=== PATIENT | male | born 1945 | race African-American/Black ===

== ENCOUNTER 2021-01-11 19:13 | Inpatient (IN) | payer OTHER ==
[2021-01-11 20:03] VITALS: BMI 25.0
[2021-01-11] MEDS ORDERED: LIDOCAINE 5% TOPICAL PATCH TP ONE (20:31)
[2021-01-11] MEDS ORDERED: LIDOCAINE 5% TOPICAL PATCH ONE (21:40)
[2021-01-11 21:47] LABS: EPI CELLS 3 /uL (0-25.1); HYALINE CASTS 4 /uL (0-3.1); URINE APPEARANCE CLEAR; URINE BACTERIA 43 /uL (0-1359); URINE BILIRUBIN NEGATIVE (NEGATIVE); URINE COLOR YELLOW; URINE GLUCOSE (UA) NEGATIVE (NEGATIVE); URINE KETONE NEGATIVE (NEGATIVE); URINE LEUK ESTERASE NEGATIVE (NEGATIVE); URINE NITRITE NEGATIVE (NEGATIVE); URINE PROTEIN 1+ (NEGATIVE); URINE RBC 2 /uL (0-23.9); URINE UROBILINOGEN 4.0 E.U/dl mg/dL (0.2-1.0); URINE WBC 1 /uL (0-25.8)
[2021-01-11] MEDS ORDERED: LIDOCAINE PATCH REMOVAL MC ONE (22:00)
[2021-01-11 22:14] LABS: INR 1.15 (0.83-1.09); PROTHROMBIN TIME (PATIENT) 12.9 SEC (9.7-13.0)
[2021-01-11 22:15] LABS: BASO % 0.7 % (0-2.0); EOS % 2.4 % (0-4.5); HEMATOCRIT 35.3 % (35.4-49); HEMOGLOBIN 11.9 GM/dL (11.7-16.9); LYMPH % 19.8 % (8-40); MCH 36.7 pg (25.7-33.7); MCHC 33.6 g/dl (32.0-35.9); MEAN CELL VOLUME 109.2 fl (80-96); MEAN PLT VOLUME 8.6 fl (7.5-11.1); MONO % 20.7 % (3.8-10.2); NEUT % 56.4 % (42.8-82.8); RBC 3.24 M/mm3 (4.00-5.60); RDW 20.1 % (11.9-15.9)
[2021-01-11 22:17] LABS: ACTIVATED PTT 25.6 SECONDS (25.2-36.5)
[2021-01-11 22:25] LABS: CHLORIDE 98 mmol/L (98-107)
[2021-01-11 22:27] LABS: CALCIUM 8.3 mg/dL (8.5-10.1)
[2021-01-11 22:28] LABS: ALBUMIN 3.1 g/dl (3.4-5.0); CO2 26 mmol/L (21-32); GLUCOSE,RANDOM 91 mg/dL (74-106)
[2021-01-11 22:31] LABS: CREATININE 1.2 mg/dL (0.55-1.3)
[2021-01-11 22:33] LABS: TOT PROT 9.6 g/dl (6.4-8.2)
[2021-01-11 22:34] LABS: ALK PHOS 182 U/L (45-117)
[2021-01-11 22:36] LABS: ANION GAP -6 MMOL/L (8-16); SGOT/AST 249 U/L (15-37); SODIUM 118 mmol/L (136-145)
[2021-01-11 22:58] LABS: ANISOCYTOSIS 2+; MACROCYTOSIS 2+; PLATELET ESTIMATE DECREASED
[2021-01-11 23:01] LABS: WHITE BLOOD COUNT 5.7 K/mm3 (4.0-10.0)
[2021-01-11 23:02] LABS: PLATELET COUNT 111 10^3/uL (134-434)
[2021-01-12 00:33] LABS: CHLORIDE 102 mmol/L (98-107); SODIUM 138 mmol/L (136-145)
[2021-01-12 00:35] LABS: CALCIUM 9.1 mg/dL (8.5-10.1)
[2021-01-12 00:36] LABS: ALBUMIN 3.4 g/dl (3.4-5.0); ANION GAP 9 MMOL/L (8-16); BLOOD UREA NITROGEN 17.6 mg/dL (7-18); CO2 27 mmol/L (21-32); GLUCOSE,RANDOM 95 mg/dL (74-106)
[2021-01-12 00:39] LABS: CREATININE 1.1 mg/dL (0.55-1.3); SGOT/AST 130 U/L (15-37); SGPT/ALT 53 U/L (13-61)
[2021-01-12 00:42] LABS: ALK PHOS 182 U/L (45-117)
[2021-01-12] MEDS ORDERED: ALBUTEROL SO4 2.5/IPRATROPIUM 0.5 INH SOL 3 ML VIAL.NEB. NEB ONE ×2 (01:18→05:52)
[2021-01-12] MEDS: ALBUTEROL SO4 2.5/IPRATROPIUM 0.5 INH SOL 3 ML VIAL.NEB. NEB SCH ×2 (01:27→15:40)
[2021-01-12] MEDS ORDERED: FOLIC ACID INJECTION - 1 MG, THIAMINE HCL 200 MG, MULTIVIT INJECTION ADULT 10 ML in SOD... IVPB ONE (03:25)
[2021-01-12] MEDS ORDERED: cloNIDine HCL 0.1 MG TABLET PO PRN (03:36)
[2021-01-12] MEDS ORDERED: LORazepam 2 MG/ML SDV VIAL IVPUSH ONE (03:36)
[2021-01-12] MEDS ORDERED: LORazepam 1 MG TABLET PO PRN (03:36)
[2021-01-12] MEDS ORDERED: methaDONE HCL 10 MG TABLET (FOR DETOX USE ONLY) PO ONE ×2 (04:03→05:00)
[2021-01-12] MEDS ORDERED: methaDONE HCL 10 MG TABLET ONE (04:07)
[2021-01-12] MEDS ORDERED: methaDONE HCL 10 MG TABLET PO ONE (04:15)
[2021-01-12 04:26] LABS: COCAINE, UR NEGATIVE (NEGATIVE); OPIATES, URI NEGATIVE (NEGATIVE); PHENCYCLIDINE,URINE NEGATIVE (NEGATIVE); URINE BENZODIAZEPINES NEGATIVE (NEGATIVE)
[2021-01-12 04:33] LABS: METHADONE, UR POSITIVE (NEGATIVE); URINE AMPHETAMINES NEGATIVE (NEGATIVE); URINE BARBITURATES NEGATIVE (NEGATIVE)
[2021-01-12] MEDS ORDERED: methylPREDNISolone NA SUCC 40 MG/1 ML VIAL ONE ×2 (06:21→20:03)
[2021-01-12 06:45] LABS: HEMATOCRIT 32.9 % (35.4-49); HEMOGLOBIN 11.6 GM/dL (11.7-16.9); MCH 37.4 pg (25.7-33.7); MCHC 35.2 g/dl (32.0-35.9); MEAN CELL VOLUME 106.3 fl (80-96); MEAN PLT VOLUME 8.1 fl (7.5-11.1); PLATELET COUNT 105 10^3/uL (134-434); RDW 17.4 % (11.9-15.9); WHITE BLOOD COUNT 4.5 K/mm3 (4.0-10.0)
[2021-01-12] MEDS: hydrALAZINE HCL 10 MG TABLET PO SCH ×3 (06:50→22:59)
[2021-01-12] MEDS: methylPREDNISolone NA SUCC 40 MG/1 ML VIAL IVPB SCH ×3 (06:58→20:11)
[2021-01-12 07:09] LABS: CALCIUM 8.4 mg/dL (8.5-10.1)
[2021-01-12 07:10] LABS: ALBUMIN 3.2 g/dl (3.4-5.0); BLOOD UREA NITROGEN 15.6 mg/dL (7-18); MAGNESIUM 1.2 mg/dL (1.8-2.4)
[2021-01-12 07:13] LABS: CREATININE 1.1 mg/dL (0.55-1.3); PHOSPHOROUS 3.5 mg/dL (2.5-4.9)
[2021-01-12 07:14] LABS: BILIRUBIN,TOTAL 2.1 mg/dL (0.2-1); TOT PROT 7.6 g/dl (6.4-8.2)
[2021-01-12] MEDS ORDERED: MAGNESIUM SULF 50% (8.12 MEQ/2 ML-1 GM VIAL) IVPB ONE (08:00)
[2021-01-12] MEDS ORDERED: LISINOPRIL 10 MG TABLET PO SCH (10:00)
[2021-01-12] MEDS ORDERED: ENOXAPARIN NA (PORCINE) 40 MG/0.4 ML DISP.SYRIN SQ SCH (10:00)
[2021-01-12] MEDS ORDERED: LABETALOL HCL 5 MG/1 ML (100MG/20 ML VIAL) IVPUSH ONE (10:00)
[2021-01-12] MEDS ORDERED: FOLIC ACID 1 MG TABLET (FP) PO SCH (10:00)
[2021-01-12] MEDS ORDERED: THIAMINE HCL 200 MG/2 ML VIAL IVPB ONE (11:00)
[2021-01-12] MEDS: LISINOPRIL 10 MG TABLET PO SCH (15:41)
[2021-01-12] MEDS: DOCUSATE SODIUM 100 MG CAPSULE (FP) PO SCH ×2 (15:41→22:59)
[2021-01-12] MEDS: LORazepam 1 MG TABLET PO SCH ×4 (15:41→23:00)
[2021-01-12] MEDS: POLYETHYLENE GLYCOL (HEALTHYLAX) 3350 17 GM PACKET PO SCH (15:42)
[2021-01-12] MEDS: NICOTINE 21 MG/24 HOURS TOPICAL PATCH TD SCH (15:42)
[2021-01-12] MEDS: CARVEDILOL 6.25 MG TABLET (FP) PO SCH (15:42)
[2021-01-12] MEDS: THIAMINE HCL 100 MG TABLET (FP) PO SCH ×2 (15:43→22:59)
[2021-01-12] MEDS: BUDESONIDE/FORMETEROL FUMARATE 80/4.5 mcg INHALER IH SCH ×2 (15:43→23:20)
[2021-01-12] MEDS ORDERED: LORazepam 1 MG TABLET ONE (17:49)
[2021-01-12] MEDS ORDERED: GABAPENTIN 100 MG CAPSULE ONE (17:50)
[2021-01-12] MEDS: GABAPENTIN 300 MG CAPSULE PO SCH ×2 (17:59→23:00)
[2021-01-12] MEDS ORDERED: LORazepam 0.5 MG TABLET ONE (20:03)
[2021-01-12] MEDS: ATORVASTATIN CA 10 MG TABLET (FP) PO SCH (22:59)
[2021-01-12] MEDS: amLODIPine BESYLATE 10 MG TABLET (FP) PO SCH (22:59)
[2021-01-12] MEDS: MONTELUKAST NA 10 MG TABLET PO SCH (22:59)
[2021-01-12] MEDS: HEPARIN NA (PORCINE) 5,000 UNITS/ML 1ML VIAL SQ SCH (23:01)
[2021-01-13] MEDS: methylPREDNISolone NA SUCC 40 MG/1 ML VIAL IVPB SCH ×2 (01:22→11:19)
[2021-01-13] MEDS ORDERED: methaDONE HCL 10 MG TABLET ONE ×2 (05:24→12:22)
[2021-01-13] MEDS ORDERED: PT OWN MED DRAWER 7, Y5N ONE ×3 (05:25→22:00)
[2021-01-13] MEDS: GABAPENTIN 300 MG CAPSULE PO SCH ×3 (05:36→22:02)
[2021-01-13] MEDS: hydrALAZINE HCL 10 MG TABLET PO SCH ×3 (05:37→22:02)
[2021-01-13] MEDS: LORazepam 1 MG TABLET PO SCH ×4 (05:37→22:02)
[2021-01-13] MEDS: HEPARIN NA (PORCINE) 5,000 UNITS/ML 1ML VIAL SQ SCH ×3 (05:38→22:02)
[2021-01-13] MEDS: LISINOPRIL 10 MG TABLET PO SCH (06:00)
[2021-01-13] MEDS: THIAMINE HCL 100 MG TABLET (FP) PO SCH ×2 (11:18→22:02)
[2021-01-13] MEDS: NICOTINE 21 MG/24 HOURS TOPICAL PATCH TD SCH (11:18)
[2021-01-13] MEDS: DOCUSATE SODIUM 100 MG CAPSULE (FP) PO SCH ×2 (11:19→22:02)
[2021-01-13] MEDS: BUDESONIDE/FORMETEROL FUMARATE 80/4.5 mcg INHALER IH SCH ×2 (11:19→22:34)
[2021-01-13] MEDS: ASPIRIN 81 MG CHEWABLE TABLETS PO SCH (11:19)
[2021-01-13] MEDS: CARVEDILOL 6.25 MG TABLET (FP) PO SCH (11:19)
[2021-01-13] MEDS: FOLIC ACID 1 MG TABLET (FP) PO SCH (11:19)
[2021-01-13] MEDS: POLYETHYLENE GLYCOL (HEALTHYLAX) 3350 17 GM PACKET PO SCH (11:19)
[2021-01-13] MEDS: LATANOPROST 0.005% OPHTH SOLN 2.5ML BOTTLE OU SCH ×2 (12:39→22:34)
[2021-01-13 17:52] LABS: CALCIUM 8.6 mg/dL (8.5-10.1)
[2021-01-13 17:53] LABS: ALBUMIN 3.2 g/dl (3.4-5.0); BLOOD UREA NITROGEN 26.2 mg/dL (7-18); MAGNESIUM 1.6 mg/dL (1.8-2.4)
[2021-01-13 17:56] LABS: CREATININE 1.3 mg/dL (0.55-1.3); PHOSPHOROUS 4.4 mg/dL (2.5-4.9)
[2021-01-13 17:57] LABS: BILIRUBIN,TOTAL 1.2 mg/dL (0.2-1)
[2021-01-13 17:58] LABS: TOT PROT 7.6 g/dl (6.4-8.2)
[2021-01-13] MEDS: MONTELUKAST NA 10 MG TABLET PO SCH (22:02)
[2021-01-13] MEDS: ATORVASTATIN CA 10 MG TABLET (FP) PO SCH (22:02)
[2021-01-13] MEDS: amLODIPine BESYLATE 10 MG TABLET (FP) PO SCH (22:02)
[2021-01-14] MEDS ORDERED: LORazepam 0.5 MG TABLET PO PRN
[2021-01-14] MEDS: LORazepam 0.5 MG TABLET PO SCH ×2 (05:36→10:04)
[2021-01-14] MEDS: HEPARIN NA (PORCINE) 5,000 UNITS/ML 1ML VIAL SQ SCH ×3 (05:37→22:04)
[2021-01-14] MEDS: hydrALAZINE HCL 10 MG TABLET PO SCH ×3 (05:37→22:04)
[2021-01-14] MEDS: GABAPENTIN 300 MG CAPSULE PO SCH ×3 (05:37→22:04)
[2021-01-14] MEDS ORDERED: methaDONE HCL 10 MG TABLET PO ONE (06:00)
[2021-01-14] MEDS: methaDONE HCL 40 MG DISPERSABLE TABLET PO SCH (06:01)
[2021-01-14] MEDS: LISINOPRIL 10 MG TABLET PO SCH (06:01)
[2021-01-14] MEDS ORDERED: methylPREDNISolone NA SUCC 40 MG/1 ML VIAL IVPB SCH (10:00)
[2021-01-14] MEDS ORDERED: methaDONE HCL 10 MG TABLET (FOR DETOX USE ONLY) PO SCH (10:00)
[2021-01-14] MEDS: DOCUSATE SODIUM 100 MG CAPSULE (FP) PO SCH ×2 (10:01→22:04)
[2021-01-14] MEDS: CARVEDILOL 6.25 MG TABLET (FP) PO SCH (10:01)
[2021-01-14] MEDS: THIAMINE HCL 100 MG TABLET (FP) PO SCH ×2 (10:01→22:05)
[2021-01-14] MEDS: NICOTINE 21 MG/24 HOURS TOPICAL PATCH TD SCH (10:01)
[2021-01-14] MEDS: BUDESONIDE/FORMETEROL FUMARATE 80/4.5 mcg INHALER IH SCH ×2 (10:01→22:05)
[2021-01-14] MEDS: POLYETHYLENE GLYCOL (HEALTHYLAX) 3350 17 GM PACKET PO SCH (10:01)
[2021-01-14] MEDS: ASPIRIN 81 MG CHEWABLE TABLETS PO SCH (10:01)
[2021-01-14] MEDS: FOLIC ACID 1 MG TABLET (FP) PO SCH (10:01)
[2021-01-14 10:15] LABS: BASO % 0.4 % (0-2.0); EOS % 0.8 % (0-4.5); HEMATOCRIT 40.1 % (35.4-49); HEMOGLOBIN 13.8 GM/dL (11.7-16.9); LYMPH % 24.1 % (8-40); MCH 36.3 pg (25.7-33.7); MCHC 34.4 g/dl (32.0-35.9); MEAN CELL VOLUME 105.4 fl (80-96); MONO % 16.7 % (3.8-10.2); PLATELET COUNT 158 10^3/uL (134-434); WHITE BLOOD COUNT 6.5 K/mm3 (4.0-10.0)
[2021-01-14] MEDS: methylPREDNISolone NA SUCC 40 MG/1 ML VIAL IVPUSH SCH ×2 (13:55→22:04)
[2021-01-14] MEDS: LATANOPROST 0.005% OPHTH SOLN 2.5ML BOTTLE OU SCH (22:05)
[2021-01-14] MEDS: MONTELUKAST NA 10 MG TABLET PO SCH (22:05)
[2021-01-14] MEDS: ATORVASTATIN CA 10 MG TABLET (FP) PO SCH (22:05)
[2021-01-14] MEDS: amLODIPine BESYLATE 10 MG TABLET (FP) PO SCH (22:05)
[2021-01-15] MEDS ORDERED: LORazepam 0.5 MG TABLET PO ONE (05:00)
[2021-01-15] MEDS: methaDONE HCL 40 MG DISPERSABLE TABLET PO SCH (06:06)
[2021-01-15] MEDS: HEPARIN NA (PORCINE) 5,000 UNITS/ML 1ML VIAL SQ SCH ×2 (06:07→14:52)
[2021-01-15] MEDS: hydrALAZINE HCL 10 MG TABLET PO SCH ×2 (06:07→14:52)
[2021-01-15] MEDS: GABAPENTIN 300 MG CAPSULE PO SCH ×2 (06:07→14:52)
[2021-01-15] MEDS: LISINOPRIL 10 MG TABLET PO SCH (06:08)
[2021-01-15] MEDS ORDERED: predniSONE 10 MG TABLET (UD) PO SCH (10:00)
[2021-01-15] MEDS: methylPREDNISolone NA SUCC 40 MG/1 ML VIAL IVPUSH SCH (10:03)
[2021-01-15] MEDS: NICOTINE 21 MG/24 HOURS TOPICAL PATCH TD SCH (10:03)
[2021-01-15] MEDS: CARVEDILOL 6.25 MG TABLET (FP) PO SCH (10:03)
[2021-01-15] MEDS: THIAMINE HCL 100 MG TABLET (FP) PO SCH (10:03)
[2021-01-15] MEDS: FOLIC ACID 1 MG TABLET (FP) PO SCH (10:03)
[2021-01-15] MEDS: ASPIRIN 81 MG CHEWABLE TABLETS PO SCH (10:03)
[2021-01-15] MEDS: DOCUSATE SODIUM 100 MG CAPSULE (FP) PO SCH (10:03)
[2021-01-15] MEDS: BUDESONIDE/FORMETEROL FUMARATE 80/4.5 mcg INHALER IH SCH (10:11)
[2021-01-15] MEDS: POLYETHYLENE GLYCOL (HEALTHYLAX) 3350 17 GM PACKET PO SCH (10:11)
[2021-01-15 11:53] LABS: BASO % 0.3 % (0-2.0); EOS % 0.1 % (0-4.5); HEMOGLOBIN 12.8 GM/dL (11.7-16.9); LYMPH % 12.4 % (8-40); MCHC 34.5 g/dl (32.0-35.9); MEAN CELL VOLUME 107.1 fl (80-96); MEAN PLT VOLUME 8.1 fl (7.5-11.1); MONO % 22.4 % (3.8-10.2); NEUT % 64.8 % (42.8-82.8); PLATELET COUNT 156 10^3/uL (134-434); RBC 3.46 M/mm3 (4.00-5.60); RDW 17.4 % (11.9-15.9); WHITE BLOOD COUNT 6.5 K/mm3 (4.0-10.0)
[2021-01-15 13:44] LABS: ANISOCYTOSIS 1+; MACROCYTOSIS 1+; PLATELET ESTIMATE DECREASED
[2021-01-15 18:38] VITALS: BP 131/72; PULSE 73; TEMP 98.3
[2021-01-16] MEDS ORDERED: D PO ONE (06:00)
== END 2021-01-15 19:10 | disposition other institution (70) | DRG 305 ==
LOC: JER 19:13 → JERBED 01-12 01:13 → J4S 01-12 22:10 → J5S 01-14 21:09
PROVIDERS: ADMIT Internal Medicine; ATTEND Internal Medicine
DX: I16.0 Hypertensive urgency (principal); F10.239 Alcohol dependence with withdrawal, unspecified; F11.20 Opioid dependence, uncomplicated; I48.91 Unspecified atrial fibrillation; D49.0 Neoplasm of unspecified behavior of digestive system; J45.909 Unspecified asthma, uncomplicated; R74.01 Elevation of levels of liver transaminase levels; I25.10 Atherosclerotic heart disease of native coronary artery without angina pectoris; F17.210 Nicotine dependence, cigarettes, uncomplicated; E78.5 Hyperlipidemia, unspecified
CPT/HCPCS: 36415; 70450-TC; 71260-TC; 72125-TC; 72128-TC; 72131-TC; 73590-TC-LT-FY; 73590-TC-RT-FY; 73610-TC-LT-FY; 73610-TC-RT-FY; 73630-TC-LT; 73630-TC-RT-FY; 74177-TC; 80053; 80061; 80307; 81003; 82550; 82553; 82607; 82746; 83735; 83880; 84100; 84443; 84484; 85025; 85027; 85379; 85610; 85730; 87086; 93005; 93010; 93306-TC; 93970-TC; 97116-GP; 97162-GP; 99285-25; C9803; J1644; Q9967; U0003; U0005

== ENCOUNTER 2021-01-16 00:11 | Observation (INO) | payer OTHER ==
[2021-01-16 00:32] VITALS: BMI 27.9
[2021-01-16 02:49] LABS: HEMATOCRIT 38.5 % (35.4-49); HEMOGLOBIN 13.2 GM/dL (11.7-16.9); MCH 36.6 pg (25.7-33.7); MCHC 34.3 g/dl (32.0-35.9); MEAN CELL VOLUME 106.6 fl (80-96); MEAN PLT VOLUME 7.7 fl (7.5-11.1); PLATELET COUNT 182 10^3/uL (134-434); RBC 3.61 M/mm3 (4.00-5.60); RDW 17.5 % (11.9-15.9); WHITE BLOOD COUNT 7.8 K/mm3 (4.0-10.0)
[2021-01-16 03:09] LABS: CALCIUM 8.8 mg/dL (8.5-10.1)
[2021-01-16 03:10] LABS: ALBUMIN 3.1 g/dl (3.4-5.0); BLOOD UREA NITROGEN 39.5 mg/dL (7-18)
[2021-01-16 03:13] LABS: CREATININE 1.4 mg/dL (0.55-1.3)
[2021-01-16 03:14] LABS: BILIRUBIN,TOTAL 0.5 mg/dL (0.2-1); TOT PROT 7.7 g/dl (6.4-8.2)
[2021-01-16] MEDS ORDERED: SODIUM CHLORIDE 0.9% 500 ML INFUS.BAG IV ONE (03:33)
[2021-01-16] MEDS ORDERED: LIDOCAINE 5% TOPICAL PATCH TP ONE (04:54)
[2021-01-16] MEDS ORDERED: ALBUTEROL SO4 HFA INHALER IH PRN (05:00)
[2021-01-16] MEDS ORDERED: LIDOCAINE 5% TOPICAL PATCH ONE (05:55)
[2021-01-16] MEDS ORDERED: HEPARIN NA (PORCINE) 5,000 UNITS/ML 1ML VIAL ONE (05:55)
[2021-01-16] MEDS ORDERED: GABAPENTIN 100 MG CAPSULE ONE (05:55)
[2021-01-16] MEDS: HEPARIN NA (PORCINE) 5,000 UNITS/ML 1ML VIAL SQ SCH ×2 (06:23→13:35)
[2021-01-16] MEDS: GABAPENTIN 300 MG CAPSULE PO SCH ×2 (06:24→13:35)
[2021-01-16] MEDS ORDERED: methaDONE HCL 40 MG DISPERSABLE TABLET ONE (06:36)
[2021-01-16] MEDS: hydrALAZINE HCL 10 MG TABLET PO SCH ×2 (06:40→13:35)
[2021-01-16] MEDS ORDERED: methaDONE HCL 40 MG DISPERSABLE TABLET PO SCH (07:00)
[2021-01-16 07:04] LABS: ANISOCYTOSIS 2+; MACROCYTOSIS 2+; PLATELET ESTIMATE NORMAL
[2021-01-16] MEDS ORDERED: SODIUM CHLORIDE 1,000 ML IV SCH (08:00)
[2021-01-16] MEDS ORDERED: POLYETHYLENE GLYCOL (HEALTHYLAX) 3350 17 GM PACKET ONE (09:44)
[2021-01-16] MEDS ORDERED: CARVEDILOL 3.125 MG TABLET (FP) ONE (09:44)
[2021-01-16] MEDS ORDERED: predniSONE 20 MG TABLET (UD) ONE (09:44)
[2021-01-16] MEDS ORDERED: ASPIRIN 81 MG CHEWABLE TABLETS ONE (09:44)
[2021-01-16] MEDS ORDERED: THIAMINE HCL 100 MG TABLET (FP) ONE (09:45)
[2021-01-16] MEDS ORDERED: LISINOPRIL 5 MG TABLET ONE (09:45)
[2021-01-16] MEDS ORDERED: predniSONE 10 MG TABLET (UD) ONE (09:45)
[2021-01-16] MEDS ORDERED: FOLIC ACID 1 MG TABLET (FP) ONE (09:45)
[2021-01-16] MEDS ORDERED: DOCUSATE SODIUM 100 MG CAPSULE (FP) PO ONE (09:45)
[2021-01-16] MEDS ORDERED: THIAMINE HCL 100 MG TABLET (FP) PO SCH (10:00)
[2021-01-16] MEDS ORDERED: predniSONE 10 MG TABLET (UD) PO SCH (10:00)
[2021-01-16] MEDS ORDERED: DOCUSATE SODIUM 100 MG CAPSULE (FP) PO SCH (10:00)
[2021-01-16] MEDS ORDERED: predniSONE 20 MG, predniSONE 10 MG PO SCH (10:00)
[2021-01-16] MEDS ORDERED: BUDESONIDE/FORMETEROL FUMARATE 80/4.5 mcg INHALER IH SCH (10:00)
[2021-01-16] MEDS ORDERED: CARVEDILOL 6.25 MG TABLET (FP) PO SCH (10:00)
[2021-01-16] MEDS ORDERED: LISINOPRIL 10 MG TABLET PO SCH (10:00)
[2021-01-16] MEDS ORDERED: ASPIRIN 81 MG CHEWABLE TABLETS PO SCH (10:00)
[2021-01-16] MEDS ORDERED: FOLIC ACID 1 MG TABLET (FP) PO SCH (10:00)
[2021-01-16] MEDS ORDERED: POLYETHYLENE GLYCOL (HEALTHYLAX) 3350 17 GM PACKET PO SCH (10:00)
[2021-01-16 15:42] LABS: HEMATOCRIT 37.7 % (35.4-49); HEMOGLOBIN 12.7 GM/dL (11.7-16.9); MCH 36.1 pg (25.7-33.7); MCHC 33.8 g/dl (32.0-35.9); MEAN CELL VOLUME 106.9 fl (80-96); MEAN PLT VOLUME 7.8 fl (7.5-11.1); PLATELET COUNT 179 10^3/uL (134-434); RBC 3.53 M/mm3 (4.00-5.60); RDW 17.2 % (11.9-15.9); WHITE BLOOD COUNT 4.6 K/mm3 (4.0-10.0)
[2021-01-16 16:13] LABS: CALCIUM 8.3 mg/dL (8.5-10.1); MAGNESIUM 1.9 mg/dL (1.8-2.4)
[2021-01-16 16:14] LABS: BLOOD UREA NITROGEN 33.9 mg/dL (7-18)
[2021-01-16 16:17] LABS: CREATININE 1.3 mg/dL (0.55-1.3); PHOSPHOROUS 3.8 mg/dL (2.5-4.9)
[2021-01-16 18:38] VITALS: BP 122/79; PULSE 86; TEMP 98.6
[2021-01-16] MEDS ORDERED: amLODIPine BESYLATE 10 MG TABLET (FP) PO SCH (22:00)
[2021-01-16] MEDS ORDERED: LIDOCAINE PATCH REMOVAL MC SCH (22:00)
[2021-01-16] MEDS ORDERED: MONTELUKAST NA 10 MG TABLET PO SCH (22:00)
== END 2021-01-16 18:42 | disposition home or self-care (01) ==
LOC: JER 00:11 → JERBED 01:15 → INTOOBSV 01:15 → J6S 10:39
PROVIDERS: ATTEND Internal Medicine
PROC: 3E023GC Introduction of Other Therapeutic Substance into Muscle, Percutaneous Approach (ICD-10-PCS; principal; 2021-01-16)
PROC: 3E0337Z Introduction of Electrolytic and Water Balance Substance into Peripheral Vein, Percutaneous Approach (ICD-10-PCS; 2021-01-16)
DX: Z76.89 Persons encountering health services in other specified circumstances (principal); J45.909 Unspecified asthma, uncomplicated; F10.10 Alcohol abuse, uncomplicated; F19.10 Other psychoactive substance abuse, uncomplicated; R91.8 Other nonspecific abnormal finding of lung field; I25.10 Atherosclerotic heart disease of native coronary artery without angina pectoris; I11.9 Hypertensive heart disease without heart failure
CPT/HCPCS: 36415; 71046-TC-FY; 80048; 80053; 83735; 84100; 85025; 85027; 93005; 93010; 96361; 96372; 97116-GP; 97161-GP; 99285-25; C9803; G0378; J1644; U0003; U0005